=== PATIENT | male | born 1975 | race Caucasian/White ===

== ENCOUNTER 2021-08-31 10:55 | Emergency (ER) | payer BC ==
[2021-08-31] MEDS ORDERED: PERCOCET TABLET 5/325MG PO ONE (11:26)
[2021-08-31] MEDS ORDERED: CLEOCIN 150 MG CAPSULE PO ONE (11:26)
[2021-08-31] MEDS ORDERED: PERCOCET TABLET 5/325MG ONE (11:28)
[2021-08-31] MEDS ORDERED: CLEOCIN 150 MG CAPSULE ONE (11:29)
--- NOTE | 2021-08-31 11:29 | ERPHSYRPT ---
- History of Present Illness Time Seen by Provider: 08/31/21 11:15 Source: patient Exam Limitations: no limitations Patient Subjective Stated Complaint: Abscess Triage Nursing Assessment: Patient ambulated back to ED and transferred self to bed. Patient A+O X3. Patient's skin pink, warm and dry. Patient complains of abscess to right lower side of abdomen for 2 days. Patient complains of pain 10/10. Abscess noted to right lower abdomen with redness and warmth around center. Physician History: 46 years old presented to the ER with chief complaint of swelling/abscess right lower quadrant area. Patient reported started 2 days ago and gradually increase in the size swelling and pain moderate to severe sharp and last night had some pus discharge. No discharge of pus today. No fever or chills reported. Patient take it was an ingrown hair. Denies history of MRSA. Nondiabetic. Timing/Duration: day(s) (2), constant, gradual onset, worse Quality: painful Severity: moderate Location: torso Possible Causes: no cause identified Associated Symptoms: rash, swelling/mass/lumps, No fever Allergies/Adverse Reactions: No Known Drug Allergies Allergy (Verified 08/31/21 10:59) Home Medications: No Home Meds [No Home Meds] 1 [facility] 09/26/14 [History] Hx Tetanus, Diphtheria Vaccination/Date Given: Yes Hx Influenza Vaccination/Date Given: No Hx Pneumococcal Vaccination/Date Given: No Immunizations Up to Date: Yes Travel Risk - International Travel Have you traveled outside of the country in past 3 weeks: No - Coronavirus Screening Are you exhibiting any of the following symptoms?: No Close contact with a COVID-19 positive Pt in past 14-21 Days: No - Vaccine Status Have you recieved a Covid-19 vaccination: No - Review of Systems Constitutional: No Symptoms Eyes: No Symptoms Respiratory: No Symptoms Cardiac: No Symptoms Abdominal/Gastrointestinal: No Symptoms Genitourinary Symptoms: No Symptoms Musculoskeletal: No Symptoms Skin: Cellulitis, Rash Neurological: No Symptoms Psychological: No Symptoms Hematologic/Lymphatic: No Symptoms Immunological/Allergic: No Symptoms - Past Medical History Pertinent Past Medical History: Yes Psycho-Social History: Depression, Other - Past Surgical History Past Surgical History: Yes Other Surgical History: HOLE IN STOMACH 'FROM DRINKING SO MUCH' - Social History Smoking Status: Never smoker Exposure to second hand smoke: No Drug Use: none Patient Lives Alone: No - Nursing Vital Signs Nursing Vital Signs: Initial Vital Signs Temperature 96.8 F 08/31/21 11:00 Pulse Rate 75 08/31/21 11:00 Respiratory Rate 18 08/31/21 11:00 Blood Pressure 158/89 08/31/21 11:00 O2 Sat by Pulse Oximetry 98 08/31/21 11:00 Pain Scale Pain Intensity 7 - Physical Exam General Appearance: no apparent distress, alert Eye Exam: PERRL/EOMI, eyes nml inspection Ears, Nose, Throat Exam: normal ENT inspection, pharynx normal Neck Exam: normal inspection, supple, full range of motion Respiratory Exam: normal breath sounds, lungs clear Cardiovascular Exam: regular rate/rhythm, normal heart sounds Gastrointestinal/Abdomen Exam: soft, normal bowel sounds, other (Right lower quadrant oval-shaped swelling with a central head. 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 Skin Exam: rash SpO2 Interpretation: normal SpO2: 98 O2 Delivery: Room Air Ordered Tests: Active Orders 24 hr Category Date Time Status CULTURE,ABSCESS Stat Lab 08/31/21 11:41 Ordered Medication Summary Discontinued Medications Generic Name Dose Route Start Last Admin Trade Name Nader PRN Reason Stop Dose Admin Clindamycin HCl 450 mg 08/31/21 11:26 08/31/21 11:29 Clindamycin Hcl 150 Mg Capsule PO 08/31/21 11:27 450 mg STAT ONE Administration Clindamycin HCl Confirm 08/31/21 11:29 Clindamycin Hcl 150 Mg Capsule Administered 08/31/21 11:30 Dose 450 mg .ROUTE .STK-MED ONE Oxycodone/Acetaminophen 1 tab 08/31/21 11:26 08/31/21 11:29 Oxycodone Hcl/Apap 5 Mg/325 Mg Tablet PO 08/31/21 11:27 1 tab STAT ONE Administration Oxycodone/Acetaminophen Confirm 08/31/21 11:28 Oxycodone Hcl/Apap 5 Mg/325 Mg Tablet Administered 08/31/21 11:29 Dose 1 tab .ROUTE .STK-MED ONE - Progress Progress: unchanged Progress Note: 08/31/21 11:25 Under aseptic measures I have done needle aspiration with no pus but drop with squeezing. I believe is probably already drained. We will start him on antibiotics. Outpatient follow-up recommended. Area is marked. Discuss signs symptoms of worsening needing return to ER which he seems understanding. Counseled pt/family regarding: diagnosis, need for follow-up - Departure Departure Disposition: Home Clinical Impression: Cutaneous abscess of abdominal wall Condition: Stable Critical Care Time: No Referrals: SORAIDA DOUGLAS NP [Primary Care Provider] - Follow up/PCP as directed (Tomorrow for reevaluation) Instructions: MRSA (DC) Additional Instructions: Take Tylenol/ibuprofen as needed for pain. Light warm compresses. Follow-up with primary care for reevaluation. Return to ER for any worsening of swelling, pain, fever chills etc. Prescriptions: Ibuprofen 600 mg PO Q6HPRN PRN 10 Days #20 tablet PRN Reason: Pain clindamycin HCL [Clindamycin HCl] 300 mg PO QID 7 Days #28 cap
[2021-08-31 11:34] VITALS: BP 134/95; PULSE 80
[2021-08-31 14:14] VITALS: O2SAT 98
== END 2021-08-31 11:40 | disposition home or self-care (01) ==
LOC: ED 10:55
DX: L02.211 Cutaneous abscess of abdominal wall (principal)
CPT/HCPCS: 10160; 87070; 87077; 87186; 99283; A9270-GY

== ENCOUNTER 2023-05-20 18:10 | Emergency (ER) | payer BC, OTHER ==
[2023-05-20 18:27] VITALS: TEMP 98.3; O2SAT 95
--- NOTE | 2023-05-20 18:28 | ERPHSYRPT ---
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 He had some discomfort at a level of 6 out of 10 since that time. Occurred: just prior to arrival Method of Injury: direct blow Quality: constant, aching Severity of Pain-Max: mild (Moderate) Severity of Pain-Current: mild (To moderate) Extremities Pain Location: wrist: right Modifying Factors: Improves With: nothing Associated Symptoms: none Allergies/Adverse Reactions: No Known Drug Allergies Allergy (Verified 05/20/23 18:27) Home Medications: No Reportable Medications [No Reported Medications] 05/20/23 [History] Hx Tetanus, Diphtheria Vaccination/Date Given: Yes Hx Influenza Vaccination/Date Given: No Hx Pneumococcal Vaccination/Date Given: No Travel Risk - International Travel Have you traveled outside of the country in past 3 weeks: No - Coronavirus Screening Are you exhibiting any of the following symptoms?: No Close contact with a COVID-19 positive Pt in past 14-21 Days: No - Vaccine Status Have you recieved a Covid-19 vaccination: No - Review of Systems Constitutional: No Symptoms Eyes: No Symptoms Ears, Nose, & Throat: No Symptoms Respiratory: No Symptoms Cardiac: No Symptoms Abdominal/Gastrointestinal: No Symptoms Genitourinary Symptoms: No Symptoms Musculoskeletal: Injury (Right wrist), Joint Pain (Right wrist) Skin: No Symptoms Neurological: No Symptoms Psychological: No Symptoms Endocrine: No Symptoms Hematologic/Lymphatic: No Symptoms Immunological/Allergic: No Symptoms All Other Systems: Reviewed and Negative - Past Medical History Pertinent Past Medical History: Yes Psycho-Social History: Depression, Other - Past Surgical History Past Surgical History: Yes Other Surgical History: HOLE IN STOMACH 'FROM DRINKING SO MUCH' - Social History Smoking Status: Never smoker Exposure to second hand smoke: No Drug Use: none Patient Lives Alone: No - Nursing Vital Signs Nursing Vital Signs: Initial Vital Signs Temperature 98.3 F 05/20/23 18:21 Pulse Rate 80 05/20/23 18:21 Blood Pressure 142/110 05/20/23 18:21 O2 Sat by Pulse Oximetry 95 05/20/23 18:21 Pain Scale Pain Intensity 6 - Physical Exam General Appearance: no apparent distress, alert, anxiety Eyes, Ears, Nose, Throat Exam: normal ENT inspection, moist mucous membranes Neck Exam: normal inspection, non-tender, supple, full range of motion Cardiovascular/Respiratory Exam: chest non-tender, no respiratory distress Abdominal Exam: non-tender Back Exam: normal inspection, normal range of motion, No CVA tenderness, No vertebral tenderness Shoulder Exam: normal inspection, non-tender, no evidence of injury, normal ROM Elbow/Forearm Exam: normal inspection, non-tender, no evidence of injury, normal ROM Wrist Exam: normal inspection, no evidence of injury, normal ROM, bone tenderness (Right wrist), soft tissue tenderness (Right wrist), No deformity Hand Exam: normal inspection, non-tender, no evidence of injury, normal ROM Neuro/Tendon Exam: normal sensation, normal motor functions, normal tendon functions, responds to pain, no evidence tendon injury Mental Status Exam: alert, oriented x 3, cooperative Skin Exam: normal color, warm, dry SpO2 Interpretation: normal SpO2: 95 O2 Delivery: Room Air - Course Nursing assessment & vital signs reviewed: Yes Ordered Tests: Active Orders 24 hr Category Date Time Status Splint STAT Care 05/20/23 18:56 Active WRIST (MIN 3 VIEWS) Stat Exams 05/20/23 18:27 Taken - Progress Progress: unchanged Progress Note: 05/20/23 19:16 This patient's medical issue is 1 of low complexity. The level complex in the workup performed is based on review of the patient's past medical history, review the patient's medication list, review of patient's drug allergy list, history of present illness and physical findings on examination. The workup in this patient includes x-ray of the patient's right wrist. I interpreted the x-ray of the right wrist. I see no acute fracture or dislocation. Counseled pt/family regarding: diagnosis, need for follow-up, rad results Medical Desision Making - Diagnostic Testing Diagnostic test were ordered, analyzed, and reviewed by me: Yes Radiological Interpretation: Interpreted by me - Risk of complications Minimal Risk: Minimal risk of morbidity - Departure Departure Disposition: Home Clinical Impression: Right wrist pain Condition: Stable Critical Care Time: No Additional Instructions: Wear the right wrist splint for comfort. Ice pack/ice bath 3 times a day for the next 48 hours. Alternate Tylenol and ibuprofen every 4 hours while awake to help relieve pain. May follow-up in the [facility] orthopedic clinic Wednesday through Wednesday 8 AM to 10 AM for persistent right wrist pain beyond 48 to 72 hours. It is a walk-in clinic and you do not need to have an appointment to be seen.
[2023-05-20 19:43] VITALS: BP 147/95; PULSE 74; RESP 20
--- NOTE | 2023-05-21 08:38 | XRAY ---
Indication: Pain following injury. Comparison: None 3 view right wrist demonstrates radiocarpal joint space narrowing. No other bony, articular, or soft tissue abnormalities.
== END 2023-05-20 19:51 | disposition home or self-care (01) ==
LOC: ED 18:10
DX: M25.531 Pain in right wrist (principal); Z28.310 Unvaccinated for COVID-19
CPT/HCPCS: 73110; 99283; L3908

== ENCOUNTER 2023-11-08 14:45 | Emergency (ER) | payer BC, OTHER ==
[2023-11-08 14:55] VITALS: TEMP 97
--- NOTE | 2023-11-08 15:06 | ERPHSYRPT ---
- History of Present Illness Historian: patient Exam Limitations: no limitations Patient Subjective Stated Complaint: Chest pain Triage Nursing Assessment: Patient ambulated back to ED and transferred to bed per self. Patient A+O X 3. Patient's skin pink, warm and dry. Patient complains of left sided chest pain 8/10 intermittent pain since last wednesday. Patient states last week he had nausea and dizziness when it started but denies anything now. Patient complains of being SOB. Lungs noted to be clear a/p Lion. Physician History: Patient is a 48-year-old male with left lateral, inferior chest pain x 5 days. Pain does not radiate and described as sharp. It is currently 6 out of 10 but has been up to an 8 out of 10. He has had some nausea, vomiting, diaphoresis, and dyspnea with the pain. He denies diabetes mellitus, hypertension, h yperlipidemia, smoking, and history of CAD/AL. Timing/Duration: other ( 5) Quality: sharpness Location: other ( left lateral inferior) Chest Pain Radiation: no radiation Severity of Pain-Max: severe Severity of Pain-Current: moderate Modifying Factors: Improves With: nothing Associated Symptoms: nausea, vomiting, shortness of breath, diaphoresis Prior Chest Pain/Cardiac Workup: no prior chest pain Nitro Today/Relief: no nitro taken today Aspirin Treatment Today: no aspirin today Allergies/Adverse Reactions: No Known Drug Allergies Allergy (Verified 11/08/23 14:47) Home Medications: No Reportable Medications [No Reported Medications] 05/20/23 [History] Hx Tetanus, Diphtheria Vaccination/Date Given: Yes Hx Influenza Vaccination/Date Given: No Hx Pneumococcal Vaccination/Date Given: No Immunizations Up to Date: Yes Travel Risk - International Travel Have you traveled outside of the country in past 3 weeks: No - Emerging Infectious Disease Are you exhibiting symptoms associated with any current EIDs: No - Review of Systems Constitutional: No Symptoms Eyes: No Symptoms Ears, Nose, & Throat: No Symptoms Respiratory: No Symptoms Abdominal/Gastrointestinal: No Symptoms Genitourinary Symptoms: No Symptoms Musculoskeletal: No Symptoms Skin: No Symptoms Neurological: No Symptoms Psychological: No Symptoms Endocrine: No Symptoms Hematologic/Lymphatic: No Symptoms Immunological/Allergic: No Symptoms - Past Medical History Pertinent Past Medical History: Yes Psycho-Social History: Depression, Other - Past Surgical History Past Surgical History: Yes Other Surgical History: HOLE IN STOMACH 'FROM DRINKING SO MUCH' - Social History Smoking Status: Never smoker Exposure to second hand smoke: No Drug Use: none Patient Lives Alone: No - Social Determinants of Health Will the patient participate in the screening: Yes Do you worry about a steady place to live?: No Do you have any problems with any of the following?: No known problems In the past 12 months,have you had to go without utilities?: No Transportation Issues: No Has anyone in your support network made you feel unsafe?: No Have you or anyone in your house had to go without enough: No - Nursing Vital Signs Nursing Vital Signs: Initial Vital Signs Temperature 97.0 F 11/08/23 14:48 Pulse Rate 83 11/08/23 14:48 Respiratory Rate 25 H 11/08/23 14:48 Blood Pressure 178/100 11/08/23 14:48 O2 Sat by Pulse Oximetry 96 11/08/23 14:48 Pain Scale Pain Intensity 4 Hypertensive - Physical Exam General Appearance: no apparent distress Eye Exam: PERRL/EOMI, eyes nml inspection Ears, Nose, Throat Exam: normal ENT inspection, TMs normal, pharynx normal Neck Exam: normal inspection, non-tender, supple, full range of motion, No meningismus, No mass, No Brudzinski, No Kernig's Respiratory Exam: normal breath sounds, lungs clear, airway intact, No chest tenderness, No respiratory distress Cardiovascular Exam: regular rate/rhythm, normal heart sounds, normal peripheral pulses, capillary refill <2 sec, No murmur Gastrointestinal/Abdomen Exam: soft, normal bowel sounds Back Exam: normal inspection, normal range of motion Extremity Exam: normal inspection, normal range of motion Neurologic Exam: alert, oriented x 3, cooperative, 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, normal mood/affect, nml cerebellar function, nml station & gait, sensation nml Skin Exam: normal color, warm, dry Lymphatic Exam: No adenopathy SpO2 Interpretation: normal SpO2: 96 O2 Delivery: Room Air - Course Nursing assessment & vital signs reviewed: Yes EKG Interpreted by Me: RATE ( Normal sinus rhythm/rate 78/normal QT- QTc/incomplete right bundle branch block/no acute ST segment changes/interpreted contemporaneously per ER physician.) - CT Exams Chest CT Interpretation: Discussed w/radiologist ( Lung disease per radiologist) Ordered Tests: Active Orders 24 hr Category Date Time Status EKG-ER Only STAT Care 11/08/23 15:45 Active CHEST 1 VIEW (PORTABLE) Stat Exams 11/08/23 15:44 Completed CBC W DIFF Stat Lab 11/08/23 15:05 Completed CMP Stat Lab 11/08/23 15:05 Completed D-DIMER QUANTITATIVE Stat Lab 11/08/23 15:05 Completed NT PRO BNPII Stat Lab 11/08/23 15:05 Completed PROTIME WITH INR Stat Lab 11/08/23 15:05 Completed PTT Stat Lab 11/08/23 15:05 Completed TROPONIN Q4H Lab 11/08/23 15:05 Completed TROPONIN Q4H Lab 11/08/23 19:45 Ordered TROPONIN Q4H Lab 11/08/23 23:45 Ordered Medication Summary Discontinued Medications Generic Name Dose Route Start Last Admin Trade Name Freq PRN Reason Stop Dose Admin Ketorolac Tromethamine 30 mg 11/08/23 16:55 11/08/23 16:58 Ketorolac Tromethamine 30 Mg/Ml Inj IV 11/08/23 16:56 30 mg STAT ONE Administration Ketorolac Tromethamine Confirm 11/08/23 16:57 Ketorolac Tromethamine 30 Mg/Ml Inj Administered 11/08/23 16:58 Dose 30 mg .ROUTE .STK-MED ONE Lab/Rad Data: Laboratory Result Diagrams 11/08/23 15:05 11/08/23 15:05 Laboratory Results 11/08/23 11/08/23 11/08/23 Range/Units 15:05 15:05 15:05 WBC (4.23-9.07) x10^3/uL RBC (4.63-6.08) x10^6/uL Hgb (13.7-17.5) g/dL Hct (40.1-51.0) % MCV (79.0-92.2) fL MCH (25.7-32.2) pg MCHC (32.3-36.5) g/dL RDW (11.6-14.4) % Plt Count (163-337) x10^3/uL MPV (9.4-12.4) fL Gran % (34.0-67.9) % Immature Gran % (Auto) (0.001-0.429) % Nucleat RBC Rel Count (0.00-0.2) % Eos # (Auto) (0.04-0.54) x10^3/uL Immature Gran # (Auto) (0.001-0.031) x10^3u/L Absolute Lymphs (auto) (1.32-3.57) x10^3/uL Absolute Monos (auto) (0.30-0.82) x10^3/uL Absolute Nucleated RBC (0.00-0.012) x10^3u/L Lymphocytes % (21.8-53.1) % Monocytes % (5.3-12.2) % Eosinophils % (0.8-7.0) % Basophils % (0.2-1.2) % Absolute Granulocytes (1.78-5.38) x10^3/uL Basophils # (0.01-0.08) x10^3/uL PT 10.7 (9.4-12.5) SECONDS INR 0.98 (0.8-3.0) APTT 28.1 (25.1-36.5) SECONDS D-Dimer 0.38 (0.0-0.50) mg/L Sodium (135-145) mmol/L Potassium (3.5-5.1) mmol/L Chloride (98-107) mmol/L Carbon Dioxide (22-30) mmol/L Anion Gap (5-15) MEQ/L BUN (9-20) mg/dL Creatinine (0.66-1.25) mg/dL Estimated GFR ML/MIN Glucose (74-106) mg/dL Calcium (8.4-10.2) mg/dL Total Bilirubin (0.2-1.3) mg/dL AST (17-59) U/L ALT (0-50) U/L Alkaline Phosphatase (38-126) U/L Troponin I < 0.012 (0.000-0.033) ng/mL NT-Pro-B Natriuret Pep (<300) pg/mL Serum Total Protein (6.3-8.2) g/dL Albumin (3.5-5.0) g/dL 11/08/23 11/08/23 Range/Units 15:05 15:05 WBC 7.2 (4.23-9.07) x10^3/uL RBC 5.28 (4.63-6.08) x10^6/uL Hgb 15.7 (13.7-17.5) g/dL Hct 46.8 (40.1-51.0) % MCV 88.6 (79.0-92.2) fL MCH 29.7 (25.7-32.2) pg MCHC 33.5 (32.3-36.5) g/dL RDW 13.1 (11.6-14.4) % Plt Count 298 (163-337) x10^3/uL MPV 10.4 (9.4-12.4) fL Gran % 59.3 (34.0-67.9) % Immature Gran % (Auto) 0.1 (0.001-0.429) % Nucleat RBC Rel Count 0.0 (0.00-0.2) % Eos # (Auto) 0.17 (0.04-0.54) x10^3/uL Immature Gran # (Auto) 0.01 (0.001-0.031) x10^3u/L Absolute Lymphs (auto) 2.06 (1.32-3.57) x10^3/uL Absolute Monos (auto) 0.64 (0.30-0.82) x10^3/uL Absolute Nucleated RBC 0.00 (0.00-0.012) x10^3u/L Lymphocytes % 28.6 (21.8-53.1) % Monocytes % 8.9 (5.3-12.2) % Eosinophils % 2.4 (0.8-7.0) % Basophils % 0.7 (0.2-1.2) % Absolute Granulocytes 4.28 (1.78-5.38) x10^3/uL Basophils # 0.05 (0.01-0.08) x10^3/uL PT (9.4-12.5) SECONDS INR (0.8-3.0) APTT (25.1-36.5) SECONDS D-Dimer (0.0-0.50) mg/L Sodium 140 (135-145) mmol/L Potassium 3.8 (3.5-5.1) mmol/L Chloride 108 H (98-107) mmol/L Carbon Dioxide 26 (22-30) mmol/L Anion Gap 10.0 (5-15) MEQ/L BUN 9 (9-20) mg/dL Creatinine 0.73 (0.66-1.25) mg/dL Estimated GFR 112.2 ML/MIN Glucose 100 (74-106) mg/dL Calcium 9.3 (8.4-10.2) mg/dL Total Bilirubin 0.50 (0.2-1.3) mg/dL AST 23 (17-59) U/L ALT 20 (0-50) U/L Alkaline Phosphatase 70 (38-126) U/L Troponin I (0.000-0.033) ng/mL NT-Pro-B Natriuret Pep 142 (<300) pg/mL Serum Total Protein 7.1 (6.3-8.2) g/dL Albumin 4.0 (3.5-5.0) g/dL Reviewed - Progress Progress: improved Progress Note: 11/08/23 17:36 Nursing note vital signs reviewed. No further housing insecurity noted. Additional history per mother. All lab results thoroughly reviewed and shared with patient/mother. Chest x-ray result thoroughly reviewed and shared with patient/mother. Patient's heart score is 3 and Wells score for PE is 0. Pain most likely noncardiac in origin. He was given 30 mg IV Toradol before discharge. discharged in stable condition with instructions to follow-up with his PCP and return to ER for increasing pain or increasing shortness of breath. Counseled pt/family regarding: lab results, diagnosis, need for follow-up, rad results Medical Desision Making - Independent Historian Additional History obtained from: Mother - Diagnostic Testing Diagnostic test were ordered, analyzed, and reviewed by me: Yes Radiological Interpretation: Reviewed by me - Risk of complications Low Risk: Low risk of morbidity from additional dx testing or treatment - Departure Departure Disposition: Home Clinical Impression: Chest pain Condition: Stable Critical Care Time: No Referrals: KOTA HEATH [Primary Care Provider] - Follow up/PCP as directed Instructions: Chest Pain (DC) Additional Instructions: Follow-up with your family MD in 1 to 2 days Return to ER for increasing pain, temperature greater 100.5, or increasing shortness of breath
[2023-11-08 15:50] LABS: Absolute Neutrophil Ct (ANC) 4.28 x10^3/uL (1.78-5.38); BASOPHIL % 0.7 % (0.2-1.2); Basophil (Absolute #) 0.05 x10^3/uL (0.01-0.08); Eosinophil % 2.4 % (0.8-7.0); Eosinophil (Absolute #) 0.17 x10^3/uL (0.04-0.54); Hematocrit 46.8 % (40.1-51.0); Hemoglobin 15.7 g/dL (13.7-17.5); IMMATURE GRAN # 0.01 x10^3u/L (0.001-0.031); IMMATURE GRAN % 0.1 % (0.001-0.429); Lymphocyte (Absolute #) 2.06 x10^3/uL (1.32-3.57); Lymphocytes % 28.6 % (21.8-53.1); Mean Cell Volume 88.6 fL (79.0-92.2); Mean Corpuscular Hemoglobin 29.7 pg (25.7-32.2); Mean Corpuscular Hgb Concent. 33.5 g/dL (32.3-36.5); Mean Platelet Volume 10.4 fL (9.4-12.4); Monocyte (Absolute #) 0.64 x10^3/uL (0.30-0.82); Monocytes % 8.9 % (5.3-12.2); Neutrophil % 59.3 % (34.0-67.9); Platelet Count 298 x10^3/uL (163-337); Red Blood Count 5.28 x10^6/uL (4.63-6.08); Red Cell Distribution Width 13.1 % (11.6-14.4); White Blood Count 7.2 x10^3/uL (4.23-9.07)
[2023-11-08 16:04] LABS: INR 0.98 (0.8-3.0); PROTIME 10.7 SECONDS (9.4-12.5); PTT 28.1 SECONDS (25.1-36.5)
[2023-11-08 16:16] LABS: BILIRUBIN,TOTAL 0.5 mg/dL (0.2-1.3); Calcium 9.3 mg/dL (8.4-10.2); Creatinine 1 0.73 mg/dL (0.66-1.25); EST GLOMERULAR FILTRATION RATE 112.2 ML/MIN; Potassium 3.8 mmol/L (3.5-5.1); Total Protein 7.1 g/dL (6.3-8.2)
--- NOTE | 2023-11-08 16:33 | XRAY ---
Indication: Chest pain 5 days. Comparison: December 22, 2021 Portable chest is now underinflated crowding both lung bases and accentuating cardiac silhouette. No focal infiltrate, consolidation, or large effusion. Again incidental azygous lobe. Heart within normal limits for AP portable technique. Bony thorax intact again with mild degenerative changes. Impression: Continued nonacute underinflated chest.
[2023-11-08] MEDS ORDERED: TORAdol 30 mg Injection ONE (16:57)
[2023-11-08] MEDS: TORAdol 30 mg Injection IV ONE (16:58)
[2023-11-08 17:33] VITALS: BP 132/86; PULSE 72; RESP 16
[2023-11-08 17:39] VITALS: O2SAT 96
== END 2023-11-08 17:25 | disposition home or self-care (01) ==
LOC: ED 14:45
DX: R07.9 Chest pain, unspecified (principal); R11.2 Nausea with vomiting, unspecified; R06.00 Dyspnea, unspecified
CPT/HCPCS: 36415; 71045; 80053; 83880; 84484; 85025; 85379; 85610; 85730; 93005; 96374; 99284; J1885